=== PATIENT | male | born 1945 | race Caucasian/White ===

== ENCOUNTER 2018-10-31 00:19 | Inpatient (IN) | payer MEDICARE ==
[~2018-10-31] VITALS: Ht 170.2 cm; Wt 83.9 kg
--- NOTE | 2018-10-31 00:30 | NUR ---
TO BED 1 BIB PARAMEDICS C/O BLE REDNESS,PAIN, AND SWELLING, BILATERAL HEEL ULCERS NOTED. PT AAOX4 NO ACUTE DISTRESS NOTED, RESP EVEN AND UNLABORED. PENDING ER MD MONCADA.
--- NOTE | 2018-10-31 01:15 | NUR ---
PT REPORTS BEING HOMELESS AND THAT HE JUST CAME BACK FROM [place].
--- NOTE | 2018-10-31 03:11 | NUR ---
pt asleep no acute distress noted, resp even and unlabored. call light within reach. will continue to monitor pt clsoely.
--- NOTE | 2018-10-31 04:05 | NUR ---
PT AMBULATOY TO THE BATHROOM WITH USE OF CANE. PT AAOX4 NO ACUTE DISTRESS NOTED. PAIN WITHIN ACCEPTABLE LEVEL TO PT.
--- NOTE | 2018-10-31 07:12 | NUR ---
PT ASLEEP, NO ACUTE DISTRESS NOTED, RESP EVEN AND UNLABORED. CALL LIGHT WITHIN REACH.
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
--- NOTE | 2018-10-31 09:15 | NUR ---
BREAKFAST TRAY PROVIDED. PT TOLERATING PO WELL.
[2018-10-31] MEDS ORDERED: SPIR25TA6 PO (10:59)
[2018-10-31] MEDS ORDERED: [UNRECOGNIZED DRUG - CODE] PO (10:59)
[2018-10-31 12:02] LABS: CALCIUM, SERUM 8.7 mg/dL (8.5-10.1); CARBON DIOXIDE 25 mmol/L (21-32); CHLORIDE 103 mmol/L (98-107); CREATININE 1.5 mg/dL (0.6-1.3); GLUCOSE 87 mg/dL (74-106); POTASSIUM 4.7 mmol/L (3.5-5.1); SODIUM SERUM 140 mmol/L (136-145); UREA NITROGEN, BLOOD 19 mg/dL (7-18)
[2018-10-31 12:03] LABS: BASOPHILS # (AUTO) 0.1 /CMM (0.0-0.2); BASOPHILS % (AUTO) 1.9 % (0.0-2.0); EOSINOPHILS % (AUTO) 1.2 % (0.0-6.0); HEMATOCRIT 31 % (39-51); HEMOGLOBIN 9.5 g/dL (13.5-17.5); LYMPHOCYTES # (AUTO) 1.4 /CMM (0.8-4.8); LYMPHOCYTES % (AUTO) 18.7 % (20.0-44.0); MEAN CORPUSCULAR HGB CONC 30 g/dl (31.0-36.0); MEAN CORPUSCULAR VOLUME 65 fL (80-96); MONOCYTES # (AUTO) 0.6 /CMM (0.1-1.30); MONOCYTES % (AUTO) 8.6 % (2.0-12.0); NEUTROPHILS # (AUTO) 5.1 /CMM (1.8-8.9); NEUTROPHILS % (AUTO) 69.6 % (43.0-81.0); PLATELET COUNT (AUTO) 481 /CMM (150-450); RED BLOOD CELL COUNT(AUTO) 4.87 MIL/uL (4.5-6.0); WHITE BLOOD COUNT (AUTO) 7.3 K/uL (4.3-11.0)
--- NOTE | 2018-10-31 12:15 | NUR ---
REC'D REPORT FROM CHARGE FOR MARTHA
--- NOTE | 2018-10-31 12:21 | NUR ---
PT REFUSED SALINE LOCK, UNABLE TO PROVIDE URINE AT THIS TIME. AWARE
[2018-10-31] MEDS ORDERED: IV D5/0.45 NACL 1,000 ML IV PRN (12:26)
[2018-10-31] MEDS ORDERED: HYDROCODONE/APAP 5/325MG 1 EACH TABLET PO PRN (12:30)
[2018-10-31] MEDS ORDERED: ACETAMINOPHEN 325 MG TABLET PO PRN (12:30)
[2018-10-31] MEDS ORDERED: Z GUARD REMEDY 2 OZ OINT TP PRN (12:30)
[2018-10-31] MEDS ORDERED: MAG HYDROX/AL HYDROX/SIMETH 30 ML UDC PO PRN (12:30)
[2018-10-31] MEDS ORDERED: ZOLPIDEM TARTRATE 5 MG TABLET PO PRN (12:30)
[2018-10-31] MEDS ORDERED: MAGNESIUM HYDROXIDE 30 ML UDC PO PRN (12:30)
[2018-10-31] MEDS ORDERED: ONDANSETRON HCL/PF 4 MG/2 ML VIAL IVP PRN (12:30)
--- NOTE | 2018-10-31 12:35 | NUR ---
REPORT GIVEN TO DORA LINARES FOR [id number]
--- NOTE | 2018-10-31 13:14 | NUR ---
RT NOTE: EKG ORDER NOT DONE DUE TO PATIENT NOT BEING IN THE DEPARTMENT/ ROOM AT THIS TIME. WILL WAIT FOR PATIENT TO BE ADMITTED. NURSE NOTIFIED.
--- NOTE | 2018-10-31 13:18 | NUR ---
FOOD TRAY GIVEN
--- NOTE | 2018-10-31 13:54 | NUR ---
PT TRANSFERRED TO FLOOR VIA WC
[2018-10-31 14:00] VITALS: BP 124/68
--- NOTE | 2018-10-31 14:00 | NUR ---
MS TECHNICAL ILLUSTRATOR NOTE PT ARRIVED TO MS UNIT IN STABLE CONDITION VIA W/C. PT IS A/O X4, AFEBRILE. RESPIRATIONS ARE EVEN AND UNLABORED, NOT IN ANY ACUTE DISTRESS NOTED. PUPILS ARE REACTIVE TO LIGHT, BILATERAL HAND POLICE PATROL LIEUTENANT ARE STRONG AND EQUAL. PT DENIES ANY PAIN AT THIS TIME, NO C/O SOB, N/V. NO IV ACCESS NOTED UPON ARRIVAL. PT HIGHLY REFUSED IV AND STATED "I KNOW IM AT THE HOSPITAL, BUT IM NOT A SICK PERSON." ABDOMEN IS SOFT AND NONDISTENDED, BOWEL SOUNDS ARE PRESENT IN ALL 4 QUADRANTS UPON AUSCULTATION. DENIES ANY BLADDER DISCOMFORT. PT IS AMBULATORY WITH 4-QUAD CANE. DISCOLORATIONS NOTED TO BLE, APPEARS TO HAVE DTI TO BOTH HEELS. PICTURES TAKEN AND PLACED IN CHART. DR. MEZA IS MADE AWARE OF ADMISSION W/ ORDERS ALREADY NOTED AND CARRIED OUT. INSTRUCTED PT TO USE CALL LIGHT WHEN ASSISTANCE IS NEEDED, CALL LIGHT IS LEFT WITHIN REACH.
[2018-10-31 14:30] VITALS: BP 124/68
[2018-10-31 14:53] LABS: EOSINOPHILS % (MANUAL) 1 % (0-4); LYMPHOCYTES % (MANUAL) 18 % (16-48); MONOCYTES % (MANUAL) 4 % (0-11.0); NEUTROPHILS % (MANUAL) 77 (42-76)
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
--- NOTE | 2018-10-31 15:46 | NUR ---
MS RN NOTES-- PT STRONGLY REFUSED EKG. EXPLAINED THE IMPORTANCE OF EKG AND PT STATED "IM HERE TO REST, I DONT NEED THAT." HONORED RESIDENT'S DIGNITY AND RIGHTS TO REFUSE.
--- NOTE | 2018-10-31 15:49 | NUR ---
RT NOTE: PATIENT REFUSED EKG. PATIENT DENIES CHEST PAIN AND STATES THAT HE IS "HEALTHY". PATIENT IS AWARE THAT HE CAN CHANGE HIS MIND AT ANY TIME AND KNOWS TO NOTIFY NURSE. NURSE AWARE.
--- NOTE | 2018-10-31 18:30 | NUR ---
MS RN CLOSING NOTES NEEDS MET AND RENDERED. PT IS A/O X3, AFEBRILE. RESPIRATIONS ARE EVEN AND UNLABORED, NOT IN ANY ACUTE DISTRESS NOTED. PT DENIES ANY PAIN AT THIS TIME, NO C/O SOB, N/V. PT REFUSES TO WEAR HOSPITAL GOWN, REFUSES TO OFFLOADED BILATERAL HEELS AND REFUSES PERIPHERAL IV INSERTION. EXPLAINED THE IMPORTANCE AND PT STILL NOTED WITH NONCOMPLIANCE. ENCOURAGED PT TO DRINK FLUIDS TOLERATED. REMINDED PT TO USE CALL LIGHT WHEN ASSISTANCE IS NEEDED, CALL LIGHT IS LEFT WITHIN REACH. WILL ENDORSE TO NEXT SHIFT FOR COTNINUITY OF CARE.
--- NOTE | 2018-10-31 20:00 | NUR ---
RN NOTES RECEIVED PATIENT AWAKE IN BED, NO APPARENT DISTRESS NOTED, PATIENT IS IRRITABLE, DOESN'T WANT HIS VITAL SIGNS TAKEN, NO HOSPITAL GOWN AND REFUSES ANY NURSING INTERVENTIONS AND LAB DRAW. WILL MONITOR ACCORDINGLY.
--- NOTE | 2018-10-31 22:09 | NUR ---
Patient states he just came back from [place] and is currently homeless. He is alert and oriented.He ambulates with a cane and independent with adl's. Will refer to social work job titles for possible homeless resources that may available. Addendum: 10/31/18 at 2210 by MALIK MARTE RN Amended: Links added.
--- NOTE | 2018-11-01 06:57 | NUR ---
RN NOTES ABLE TO REST AND SLEEP COMFORTABLY, NO SIGNS OF DISCOMFORT, NO APPARENT DISTRESS, WILL ENDORSE TO AM NURSE FOR CONTINUITY OF CARE.
--- NOTE | 2018-11-01 07:54 | NUR ---
M/S RN OPENING NOTES RECEIVED PATIENT SITTING ON CHAIR, A/O X 4 AND ABLE TO MAKE NEEDS KNOWN. ASSESSED NO S/SX OF ACUTE RESPIRATORY DISTRESS. ABD SOFT AND NON DISTENDED WITH ACTIVE BOWEL SOUNDS. DENIES PAIN AND DISCOMFORT. SKIN WARM TO TOUCH AND DRY. PATIENT HAS NO IV SITE HE REFUSED. GOAL FOR DISCHARGE TO PLACEMENT PATIENT STATED. PATIENT WITH POOR HISTORIAN. ALL CONCERNS ADDRESSED. PLACED CALL LIGHT WITHIN REACH FOR SAFETY. TO MONITOR FOOD INTAKE DUE TO FAILURE TO THRIVE. WILL CONTINUE TO EVALUATE CARE.
[2018-11-01 08:00] VITALS: BP 118/63
--- NOTE | 2018-11-01 11:18 | NUR ---
M/S RN NOTES ROSANGELA FROM LAB REPORTED PATIENT REFUSED LAB DRAW X 2. EXPLAINED REASON FOR PROCEDURE TO PATIENT AND STILL REFUSED. WILL CONTINUE TO OFFER AND MONITOR CARE
[2018-11-01] MEDS: SPIRONOLACTONE 25 MG TABLET PO SCH (15:05)
[2018-11-01] MEDS: ASPIRIN EC 81 MG TABLET.DR PO SCH (15:05)
[2018-11-01 16:00] VITALS: BP 122/73
--- NOTE | 2018-11-01 18:24 | NUR ---
M/S RN CLOSING NOTES PATIENT A/O X4 AND ABLE TO MAKE NEEDS KNOWN, WITH EPISODES OF HARDNESS IN HEARING. RESPIRATION WITH NO ACUTE RESPIRATORY DISTRESS. ABDOMEN SOFT AND NON DISTENDED WITH ACTIVE BOWEL SOUNDS, ON BRP WITH STAND BY ASSIST AND USES QUAD CANE ASSISTED DEVICE. SKIN WARM TO TOUCH AND DRY WITH NO NEW OPEN SKIN BREAKDOWN NOTED WITHIN THE SHIFT. PATIENT DENIES PAIN AND DISCOMFORT. BLE +1 PITTING EDEMA, STARTED ON SPIRONOLACTONE ORDERED. EDUCATED ELEVATING OF BOTH LEGS TO REDUCE SWELLING, PATIENT STATED "I WILL TRY". RISK AND BENEFITS DISCUSSED WITH VERBAL UNDERSTANDING. LAB DRAW NOT SUCCESSFUL DUE TO REFUSED OF TREATMENT. NO IV SITE IN PLACE NOR HYDRATION CAUSE PATIENT REFUSED TO DO SO. ALL CONCERNS ADDRESSED. PLACED CALL LIGHT WITHIN REACH FOR SAFETY. ENDORSED PATIENT CONDITION TO NEXT SHIFT.
--- NOTE | 2018-11-01 19:10 | NUR ---
RN MS OPENING NOTES RECEIVED PATIENT IN ROOM SLEEPING BUT EASILY AROUSABLE, RESPIRATIONS EVEN AND UNLABORED WITH EQUAL RISE AND FALL OF CHEST, DENIES ANY PAIN OR DISCOMFORT, ALERT AND ORIENTED X3-4, DESPITE EXPLANATION OF RISKS AND BENEFITS PATIENT REFUSED TO HAVE VITAL SIGNS CHECKED, AND REFUSED IV ACCESS , MD AWARE, ASSESSED LEFT AND RIGHT HEEL NOTED WITH DRY APPEARS TO BE DTI BROWN IN COLOR, UNABLE TO ASSESS ENTIRE SKIN PATIENT STATES " I DONT HAVE ANY OTHER WOUNDS". ORIENTED TO STAFF AND CALL LIGHT AND KEPT WITHIN REACH, SAFETY PRECAUTIONS IN PLACE, LOW BED AND LOCKED, ALL NEEDS ATTENDED AT THIS TIME, JELLO AND FLUIDS GIVEN, WILL CONTINUE TO MONITOR AND ATTEND TO NEEDS.
--- NOTE | 2018-11-02 05:27 | NUR ---
RN MS NOTES PATIENT REFUSED TO HAVE BLOOD WORK DONE FOR LAB DRAWS, EXPLAINED RISKS AND BENEFITS STATES "NO,NO,NO IM NOT HERE FOR MEDICAL PROBLEMS, IM HERE FOR SOCIAL HELP, IM HOMELESS".
--- NOTE | 2018-11-02 06:24 | NUR ---
RN MS CLOSING NOTES PATIENT IN ROOM SLEEPING BUT EASILY AROUSABLE, RESPIRATIONS EVEN AND UNLABORED WITH EQUAL RISE AND FALL OF CHEST, DENIES ANY PAIN OR DISCOMFORT, ALERT AND ORIENTED X3-4, DESPITE EXPLANATION OF RISKS AND BENEFITS PATIENT REFUSED TO HAVE VITAL SIGNS CHECKED, REFUSED LAB DRAW AND REFUSED IV ACCESS , MD AWARE, REMINDED PATIENT TO ELEVATE LEFT AND RIGHT HEEL NOTED WITH DRY APPEARS TO BE DTI BROWN IN COLOR, CALL LIGHT KEPT WITHIN REACH, SAFETY PRECAUTIONS IN PLACE, LOW BED AND LOCKED, CANE NEXT TO PATIENT AT BEDSIDE, ALL NEEDS ATTENDED AT THIS TIME,SNACKS SANDWHICH AND FLUIDS GIVEN, WILL CONTINUE TO MONITOR AND ATTEND TO NEEDS AND ENDORSE TO NEXT SHIFT.
--- NOTE | 2018-11-02 07:30 | NUR ---
RN OPENING NOTES PATIENT IN ROOM SLEEPING BUT EASILY AROUSABLE. RESPIRATIONS EVEN AND UNLABORED WITH EQUAL RISE AND FALL OF CHEST, DENIES ANY PAIN OR DISCOMFORT, ALERT AND ORIENTED X3-4, ABLE TO MAKE NEEDS KNOWN. DESPITE EXPLANATION OF RISKS AND BENEFITS PATIENT REFUSED IV ACCESS , MD AWARE, REMINDED PATIENT TO ELEVATE LEFT AND RIGHT HEEL NOTED WITH DRY APPEARS TO BE DTI BROWN IN COLOR, CALL LIGHT KEPT WITHIN REACH, SAFETY PRECAUTIONS IN PLACE, LOW BED AND LOCKED, CANE NEXT TO PATIENT AT BEDSIDE. SIDERAILS UP X2, WILL CONTINUE TO MONITOR ACCORDINGLY
[2018-11-02 08:00] VITALS: BP 117/70
[2018-11-02] MEDS: SPIRONOLACTONE 25 MG TABLET PO SCH (08:04)
[2018-11-02] MEDS: ASPIRIN EC 81 MG TABLET.DR PO SCH (08:04)
[2018-11-02 16:00] VITALS: BP 109/62
--- NOTE | 2018-11-02 19:15 | NUR ---
RN OPENING NOTES BEDSIDE REPORT RECIEVED FROM DEDE JOHN. PATIENT IN ROOM WATCHING TV. RESPIRATIONS EVEN AND UNLABORED WITH EQUAL RISE AND FALL OF CHEST, DENIES ANY PAIN OR DISCOMFORT, ALERT AND ORIENTED X3-4, ABLE TO MAKE NEEDS KNOWN. PATIENT STILL REFUSING IV INSERTION AND IV MEDICATIONS. MD AWARE. PATIENT REMINDED TO ELEVATE LEFT AND RIGHT HEEL. HEALS ARE DRY AND HAVE DARKENED COLOR. CALL LIGHT KEPT WITHIN REACH, SAFETY PRECAUTIONS IN PLACE, LOW BED AND LOCKED, CANE NEXT TO PATIENT AT BEDSIDE. SIDERAILS UP X2, WILL CONT TO MONITOR.
--- NOTE | 2018-11-02 19:38 | NUR ---
RN CLOSING NOTES PATIENT IN STABLE CONDITION. ALL NEEDS ATTENDED AND PROVIDED, ALL DUE MEDS GIVEN ORDERED. ASSISTED WITH ADLs. KEPT PATIENT SAFE AND COMFORTABLE. BED IN LOW/LOCKED POSITION, SIDERAILS UPX2 CALL LIGHT IN EACH. ENDORSED TO NIGHT RN FOR MARTHA.
[2018-11-02 20:00] VITALS: BP 103/64
--- NOTE | 2018-11-02 21:55 | NUR ---
NURSE REASSIGNMENT. KAILASH JOHN GIVEN REPORT AT THE BEDSIDE. QUESTIONS CONCERNS ADDRESSED. PATIENT IN BED. POC REVIEWED BED ALARM APPLIED. PATIENT VERALIZED UNDERSTANDING TO CALL FOR ASSISTANCE NEEDED.
--- NOTE | 2018-11-02 22:00 | NUR ---
MS RN NOTE RECEIVED MIDSHIFT REPORT FROM DORA HAWKINS. PT IN STABLE CONDITION A&O X4, CURRENTLY IN BED WATCHING TV. NO SIGNS OF SOB OR DISTRESS, NO C/O PAIN. ALL CURRENT NEEDS ATTENDED TO. BED LOW, LOCKED, UPPER RAILS UP, BED ALARM ON, AND CALL LIGHT WITHIN REACH. WILL CONT. TO MONITOR.
--- NOTE | 2018-11-03 06:20 | NUR ---
MS RN NOTE PT IN STABLE CONDITION A&O X4, CURRENTLY IN BED WATCHING TV. NO SIGNS OF SOB OR DISTRESS, NO C/O PAIN. ALL CURRENT NEEDS ATTENDED TO. BED LOW, LOCKED, UPPER RAILS UP, BED ALARM ON, AND CALL LIGHT WITHIN REACH. WILL CONT. TO MONITOR AND ENDORSE TO NEXT SHIFT FOR MARTHA.
--- NOTE | 2018-11-03 07:27 | NUR ---
MS RN NOTES PATIENT RECEIVED RESTING INSIDE ROOM, SITTING ON CHAIR, AWAKE, ALERT AND ORIENTED X 3, VERBALLY RESPONSIVE AND RESPONDS TO VERBAL AND TACTILE STIMULI. BREATHING EVEN AND UNLABORED. NO ACUTE DISTRESS. DENIES ANY PAIN AT THIS TIME. NO IV ACCESS ON PATIENT, MD AWARE AND OK PER SHIFT CHANGE REPORT. WILL CONTINUE TO MONITOR. BED LOCKED AND IN LOW POSITION. BILATERAL UPPER SIDE RAILS UP AND LOCKED. CALL LIGHT WITHIN EASY REACH
[2018-11-03 08:00] VITALS: BP 107/64
[2018-11-03] MEDS: SPIRONOLACTONE 25 MG TABLET PO SCH (08:03)
[2018-11-03] MEDS: ASPIRIN EC 81 MG TABLET.DR PO SCH (08:03)
--- NOTE | 2018-11-03 09:21 | NUR ---
HERNAN was informed by pt's DORA Dunbar that pt. refused to have any labs or workup done unless he speaks to the renal social worker. HERNAN along with DORA Dunbar met with pt. bedside. Pt. stated that he wanted to make it was okay by SW to get his labs. SW explained to the pt. that it is okay to get the labs done since it is required for placement. Pt. understood and immediately cooperated in getting labs done. Pt. is aware and agreed to be discharged to [facility] located at [address] [place] [address]. [place] [id number]. . DORA Dunbar will have Homeless Patient Waiver form signed by the pt. upon discharge. No other social service needs are requested at this time.
[2018-11-03 10:20] LABS: CALCIUM, SERUM 8.7 mg/dL (8.5-10.1); CARBON DIOXIDE 26 mmol/L (21-32); CHLORIDE 102 mmol/L (98-107); CREATININE 1.5 mg/dL (0.6-1.3); GLUCOSE 61 mg/dL (74-106); POTASSIUM 4.8 mmol/L (3.5-5.1); SODIUM SERUM 137 mmol/L (136-145); UREA NITROGEN, BLOOD 23 mg/dL (7-18)
[2018-11-03 10:26] LABS: BASOPHILS # (AUTO) 0.1 /CMM (0.0-0.2); HEMATOCRIT 31 % (39-51); HEMOGLOBIN 9.4 g/dL (13.5-17.5); LYMPHOCYTES # (AUTO) 1.6 /CMM (0.8-4.8); LYMPHOCYTES % (AUTO) 22.2 % (20.0-44.0); MEAN CORPUSCULAR HGB CONC 31 g/dl (31.0-36.0); MEAN CORPUSCULAR VOLUME 64 fL (80-96); MONOCYTES # (AUTO) 0.6 /CMM (0.1-1.30); MONOCYTES % (AUTO) 8.4 % (2.0-12.0); NEUTROPHILS # (AUTO) 4.7 /CMM (1.8-8.9); NEUTROPHILS % (AUTO) 66.4 % (43.0-81.0); PLATELET COUNT (AUTO) 456 /CMM (150-450); RED BLOOD CELL COUNT(AUTO) 4.83 MIL/uL (4.5-6.0); WHITE BLOOD COUNT (AUTO) 7.1 K/uL (4.3-11.0)
[2018-11-03 10:46] LABS: EOSINOPHILS % (MANUAL) 3 % (0-4); LYMPHOCYTES % (MANUAL) 16 % (16-48); MONOCYTES % (MANUAL) 6 % (0-11.0); NEUTROPHILS % (MANUAL) 75 (42-76)
--- NOTE | 2018-11-03 13:26 | NUR ---
MS RN NOTES PLACED CALL TO [facility] ([phone]), REPORT GIVEN TO NAKUL JOHN
--- NOTE | 2018-11-03 13:57 | NUR ---
MS RN NOTES PATIENT FOR DISCHARGE TODAY. TO TRANSFER TO [facility]. DISCHARGE INSTRUCTIONS AND EDUCATION PROVIDED TO PATIENT AND PATIENT VERBALIZED UNDERSTANDING. NO IV ON PATIENT. ALL BELONGINGS COMPLETE ON DISCHARGE, NO REPORT OF MISSING INVENTORY. NO NEW SKIN BREAKDOWN NOTED ON DISCHARGE. PATIENT LEFT UNIT AT 1355 VIA GURNEY IN STABLE CONDITION. MD AWARE OF DISCHARGE.
== END 2018-11-03 14:00 | DRG 640 ==
LOC: EDBD 00:23 → ER 00:23 → MED 12:23
PROVIDERS: ADMIT Internal Medicine; ATTEND Internal Medicine
DX: R62.7 Adult failure to thrive (principal); N17.0 Acute kidney failure with tubular necrosis; D63.8 Anemia in other chronic diseases classified elsewhere; Z59.0 Homelessness; Z79.82 Long term (current) use of aspirin; Z79.899 Other long term (current) drug therapy; I10 Essential (primary) hypertension
CPT/HCPCS: 36415; 71045-TC; 80048-TC; 84484-TC; 85025-TC; 87081-TC; 97116-TC; 97530-TC; G0378